=== PATIENT | male | born 1950 | race Caucasian/White ===

== ENCOUNTER → 2016-08-20 | Outpatient (CLI) | payer OTHER ==
[~2016-08-20] VITALS: Ht 170.2 cm; Wt 83.9 kg
[~2016-08-20] MED LIST: AMARYL2 MG PO; AMARYL4 MG PO; FISH OIL 1,2001 EAC3 PO; GLUCOPHAGE1000 MG PO; HYDROCHLOROTHIA25 M1 PO; LISINOPRIL40 MG PO; LOW DOSE ASPIRI81 M1 PO; NIACIN SR 250250 MG PO; ZOCOR80 MG PO
[2016-08-20 08:25] LABS: HEMATOCRIT 41.2 % (42.0-52.0); HEMOGLOBIN 14.3 gm/dL (14.0-18.0); MCH 31.4 pg (26.0-34.0); MCHC 34.7 g/dL (28.0-37.0); MCV 90.4 fL (80.0-100.0); RBC 4.56 mil/uL (4.50-6.00); RDW 12.9 % (10.5-14.5); WBC 5.9 thou/uL (4.0-11.0)
[2016-08-20 08:38] LABS: CALCIUM 9.6 mg/dL (8.5-10.1); CREATININE 0.9 mg/dL (0.7-1.3); POTASSIUM 4.3 mmol/L (3.5-5.1)
[2016-08-20 08:39] LABS: APTT 26.8 Seconds (24.5-32.8); PROTIME 10.3 Seconds (9.3-11.4)
== END | disposition home or self-care (01) ==
LOC: SPEC 08-09 06:57
PROVIDERS: Radiology Diagnostic Radiology
DX: K55.1 Chronic vascular disorders of intestine (principal); I10 Essential (primary) hypertension; E11.9 Type 2 diabetes mellitus without complications; E78.5 Hyperlipidemia, unspecified; I73.9 Peripheral vascular disease, unspecified; Z98.890 Other specified postprocedural states; Z88.6 Allergy status to analgesic agent; Z79.899 Other long term (current) drug therapy